=== PATIENT | female | born 1960 | race Caucasian/White ===

== ENCOUNTER 2018-05-23 09:59 | Emergency (ER) | payer BC ==
--- NOTE | 2018-05-23 10:16 | ED ---
HPI Chest Pain - HPI Summary HPI Summary: 57 y/o female BIBCm c/o tight CP after getting out of the shower 1.5 hours ago. Pain currently rated 3/10 in severity. Pt says she had a panic attack yesterday lasting 20 minutes, resolved with Xanax. Today prior to CP onset she had a similar episode with palpitations. Associated sx: lightheadedness, dizziness, numbness/tingling in fingers. PMHx HTN. Nono-smoker. No previous CA. No FHx CA. This is scribe Ed Umu documenting for attending Florencio Alejandro MD. I, Dr. Alejandro, personally performed the services described in this documentation as scribed in my presence and it is both accurate and complete. - History of Current Complaint Chief Complaint: EDChestPainROMI Hx Obtained From: Patient Onset/Duration: Started Hours Ago, Still Present Time of Onset: 09:00 Timing: Constant Pain Intensity: 3 Pain Scale Used: 0-10 Numeric Character: Tightness Aggravating Factor(s): Nothing Alleviating Factor(s): Nothing Associated Signs and Symptoms: Positive: Chest Pain, Numbness, Tingling, Dizziness, Lightheadedness, Palpitations - Allergy/Home Medications Allergies/Adverse Reactions: Allergies Allergy/AdvReac Type Severity Reaction Status Date / Time No Known Allergies Allergy Verified 05/23/18 10:15 PMH/Surg Hx/FS Hx/Imm Hx Previously Healthy: No Endocrine/Hematology History: Reports: Hx Anemia - HISTORY OF Sensory History: Denies: Hx Hearing Aid Psychiatric History: Reports: Hx Anxiety, Hx Panic Disorder - Surgical History Surgery Procedure, Year, and Place: UNDER GENERAL ANESTHESIA Hx Anesthesia Reactions: No Infectious Disease History: No Infectious Disease History: Reports: Hx Hepatitis - TYPE C - 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 TREATMENT - NO PROBLEMS Denies: Traveled Outside the [place] in Last 30 Days - Family History Known Family History: Negative: Cardiac Disease - Social History Alcohol Use: Daily Alcohol Amount: 1-2 glasses wine Hx Substance Use: No Substance Use Type: Reports: None Hx Tobacco Use: Yes Smoking Status (MU): Former Smoker Review of Systems Constitutional: Negative Eyes: Negative ENT: Negative Positive: Palpitations, Chest Pain Respiratory: Negative Gastrointestinal: Negative Genitourinary: Negative Musculoskeletal: Negative Skin: Negative Neurological: Other - dizziness, lightheadedness Positive: Numbness - and tingling Psychological: Normal All Other Systems Reviewed And Are Negative: Yes Physical Exam - Summary Physical Exam Summary: VITAL SIGNS: Reviewed. GENERAL: Patient is a well-developed and nourished female who is lying comfortable in the stretcher. Patient is not in any acute respiratory distress. HEAD AND FACE: No signs of trauma. No ecchymosis, hematomas or skull depressions. No sinus tenderness. EYES: PERRLA, EOMI x 2, No injected conjunctiva, no nystagmus. EARS: Hearing grossly intact. Ear canals and tympanic membranes are within normal limits. MOUTH: Oropharynx within normal limits. NECK: Supple, trachea is midline, no adenopathy, no JVD, no carotid bruit, no c- spine tenderness, neck with full ROM. CHEST: Symmetric, no tenderness at palpation LUNGS: Clear to auscultation bilaterally. No wheezing or crackles. CVS: Regular rate and rhythm, S1 and S2 present, no murmurs or gallops appreciated. ABDOMEN: Soft, non-tender. No signs of distention. No rebound no guarding, and no masses palpated. Bowel sounds are normal. EXTREMITIES: FROM in all major joints, no edema, no cyanosis or clubbing. NEURO: Alert and oriented x 3. No acute neurological deficits. Speech is normal and follows commands. SKIN: Dry and warm Psych: Some anxiety. Triage Information Reviewed: Yes Vital Signs On Initial Exam: Initial Vitals Temp Pulse Resp BP Pulse Ox 97.5 F 95 24 140/76 98 05/23/18 10:01 05/23/18 10:01 05/23/18 10:01 05/23/18 10:01 05/23/18 10:01 Vital Signs Reviewed: Yes Diagnostics - Vital Signs Vital Signs Temp Pulse Resp BP Pulse Ox 05/23/18 10:06 89 100 05/23/18 10:04 94 140/76 100 05/23/18 10:01 97.5 F 95 24 140/76 98 - Laboratory Result Diagrams: 05/23/18 10:30 05/23/18 10:30 Lab Statement: Any lab studies that have been ordered have been reviewed, and results considered in the medical decision making process. - Radiology CXR Xray Interpretation: No Acute Changes Radiology Interpretation Completed By: Radiologist - Additional Comments Diagnostic Additional Comments: EKG 1 - 10:18 - SR @ 81 BPM. Q waves in V1-V3. ST elevations in V5-V6 but this might be due to some J point. Similar to EKG done on 04/25/2013. Chest Pain Course/Dx - Course Course Of Treatment: At 10:50 Dr. Ching is at bedside performing an echocardiogram. Assessment/Plan: Blood work is without significant abnormalities except Potassium levels of 3, chloride 97, CO2 19, Anion 22, Creatinine 1.1, troponin 0.45. EKG shows ST elevations in V5-V6. CXR NAD. Second EKG similar to preivous one. Discussed with dr yanez who was in the trestle mainternance laborer at the time with another patient. Therefore, Dr. Ching came to see the pt. After Dr. Ching came to see the pt, he thinks pt should be transferred to another for an emergent catheterization. Meanwhile the pt is given ASA, metroprolol, NTG, heparin. He also requested to give the pt metropolol IV 2.5 mg. Pt right now is getting an echo and Dr. Ching believes the pt has akinesis in the ventricular patrick. Therefore these findings may be consistent with acute STEMI. The patient now is hemodynamically stable. Dr. Ching spoke with [facility] transfer center, and the pt will be transferred to [facility], accepted by Dr. Espinosa. Pt does not have contraindications - recent sx, GI bleeds, hemorrhagic cerebrovascular accidents. Dr. Ching recommedned 30 mg TNKs IV before transfer. Pt understands risks and benefits of getting a TPA and is willing to receive a TPA. - Chest Pain Differential Diagnosis/HQI/PQRI: Acute CA, ACS, Angina, CHF, Chest Wall, GI Disease, Lower Respiratory Infection - Diagnoses Provider Diagnoses: STEMI (ST elevation myocardial infarction) During the Visit The Following Alert/Code Occurred: STEMI - Provider Notifications Discussed Care Of Patient With: Sarwat Yanez Time Discussed With Above Provider: 10:30 Instructed by Provider To: Other - Dr. Yanez is not 100% sure if this is a STEMI, will send DR. Ching to the ED to assess pt. After Dr. Ching assessed pt, Humza spoke with Dr. Espinosa at [facility], who accepted the pt for transfer after getting TPA. - Critical Care Time Critical Care Time: 75-104 min Discharge - Sign-Out/Discharge Documenting (check all that apply): Patient Departure - Discharge Plan Condition: Stable Disposition: TRANS HIGHER LVL OF CARE FAC Referrals: Noah Patel MD [Primary Care Provider] - - Billing Disposition and Condition Condition: STABLE Disposition: Trans Higher Lvl of Care Fac
[2018-05-23] MEDS ORDERED: Nitroglycerin TAB 0.4 MG* 0.4 MG TAB SL PRN (10:27)
[2018-05-23] MEDS ORDERED: Metoprolol Tartrate TAB* 25 MG PO ONE (10:27)
[2018-05-23] MEDS ORDERED: Aspirin 81 mg CHEW TAB* 81 MG TAB.CHEW PO ONE (10:27)
[2018-05-23 10:40] LABS: ABS Basophils 0.1 10^3/ul (0-0.2); ABS Eosinophils 0.2 10^3/ul (0-0.6); ABS Lymphocytes 1.1 10^3/ul (1.0-4.8); ABS Monocytes 0.4 10^3/ul (0-0.8); ABS Neutrophils 2.5 10^3/ul (1.5-7.7); ABS Nucleated RBC 0 10^3/ul; Eosinophil % 5.5 % (0-6); Hematocrit 42 % (35-47); Hemoglobin 14.7 g/dl (12.0-16.0); Lymphocyte % 25.4 % (25-47); Mean Corpuscular HGB Conc 35 g/dl (31-36); Mean Corpuscular Hemoglobin 34 pg (27-31); Mean Corpuscular Volume 97 fL (80-97); Nucleated Red Blood Cells % 0.1; Platelet Count 203 10^3/ul (150-450); Red Blood Count 4.31 10^6/ul (4.00-5.40); Red Cell Distribution Width 13 % (10.5-15); White Blood Count 4.5 10^3/ul (3.5-10.8)
[2018-05-23] MEDS ORDERED: Heparin for STEMI(*) 5,000 UNITS/ML 1 ML VIAL IV ONE ×2 (10:58→11:01)
[2018-05-23] MEDS ORDERED: Metoprolol Tartrate IV* 1 MG/ML 5 ML VIAL IV ONE (11:08)
[2018-05-23] MEDS ORDERED: KCL 10 MEQ/50 ML IVPREMIX* 10 MEQ/50 ML BAG IV SCH (11:10)
--- NOTE | 2018-05-23 11:15 | RAD ---
HISTORY: CP, shortness of breath, chest pain COMPARISONS: None VIEWS: 1: frontal portable view of the chest at 10:50 AM FINDINGS: LINES AND TUBES: None. CARDIOMEDIASTINAL SILHOUETTE: The cardiomediastinal silhouette is normal for portable technique. PLEURA: The costophrenic angles are sharp. No pleural abnormalities are noted. LUNG PARENCHYMA: The lungs are clear. ABDOMEN: The upper abdomen is clear. There is no subphrenic gas. BONES AND SOFT TISSUES: No bone or soft tissue abnormalities are noted. IMPRESSION: NO ACTIVE CARDIOPULMONARY DISEASE.
[2018-05-23 11:53] VITALS: BP 140/92
[2018-05-23] MEDS ORDERED: TENECTEPLASE IV ONE (12:00)
--- NOTE | 2018-05-23 12:03 | PN ---
Progress Note - Progress Note Date of Service: 05/23/18 Note: Spoke with Dr. Camilo Yuan, ER attending Jenae Boykin, at 12:00. Informed Dr. Yuan of incoming pt.
--- NOTE | 2018-05-23 12:47 | TRS ---
CARDIOLOGY CONSULTATION AND TRANSFER SUMMARY: DATE OF ADMISSION: 05/23/2018. DATE OF DISCHARGE: 05/23/2018. INDICATION FOR TRANSFER: Chest pain, abnormal EKG, possible STEMI. HISTORY OF PRESENT ILLNESS: The patient is a 57-year-old female with a history of hypertension. The patient came to the emergency room because of onset of chest discomfort about 2 hours ago. The patient has been under tremendous amount of stress recently, she lost her granddaughter to sudden syndrome about 6 weeks ago and has been significantly depressed since then. The patient states she was in the shower today. The patient experiencing 2 hours of chest pain at home came to the emergency room. Her initial EKG showed normal sinus rhythm with ST segment elevation in V5 and V6. The patient had an immediate echocardiogram. The echocardiogram showed akinesis of the distal anterior wall and apex. Her initial troponin level was 0.45. The decision was that the patient needed urgent cardiac catheterization; however, because of ongoing emergency in our manager laboratory, the patient will be transferred to an outside facility. PAST MEDICAL HISTORY: Hypertension, history of hysterectomy. OUTPATIENT MEDICATIONS: 1. Amlodipine 5 mg a day. 2. Iron tablets. 3. Xanax. 4. Valium. ALLERGIES: No known drug allergies. SOCIAL HISTORY: She is . 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 She denies tobacco or alcohol use. PHYSICAL EXAMINATION: Vital Signs: Height is 5 feet 2 inches, weight is 110 pounds. Temperature 97.5, heart rate is 95, blood pressure 140/76, respiratory rate is 18. HEENT: Sclerae anicteric. Oropharynx is pink without erythema. Neck: Carotids are 2+ without bruits. JVD is normal. Thyroid is normal. Cardiac: S1 and S2 without any murmurs, rubs, or gallops. Lungs: Clear to auscultation bilaterally. There is no dullness to percussion. Abdomen: Soft, nontender, and nondistended with normoactive bowel sounds. Extremities: Show no edema. She has 2+ pulses throughout. Neurologic: The patient is awake, alert, and oriented. She moves all 4 extremities equally. LABORATORY DATA: CBC within normal limits. Chemistries: Sodium is 138, potassium is 3, BUN 19, creatinine 1.1. AST and ALT are normal. TSH is pending. Initial troponin level is 0.45. PTT 29.1. IMPRESSION: The patient is a 57-year-old female admitted to the hospital with chest pain, abnormal EKG consistent with possible with ST-elevation myocardial infarction. Her echocardiogram shows anterior and apical severe hypokinesis potentially consistent with an LAD stenosis. The patient has had significant emotional trauma in the last 6 weeks. This very well could be Takotsubo or broken-heart syndrome. In general, the patient should go to the cardiac catheterization lab for determination. However, our cardiac catheterization is currently involved in an emergency. The patient will be transferred to [facility] for further evaluation. The patient will be given thrombolytics here in [facility] and transferred quickly. Total time in ED with patient 1.5 hours Of which 1/2 hour was critical care time [id number]/[facility] #: [id number] CHRIS
== END 2018-05-23 12:01 | disposition short-term general hospital (02) ==
LOC: ED 09:59
DX: I21.3 ST elevation (STEMI) myocardial infarction of unspecified site (principal); I10 Essential (primary) hypertension; Z87.891 Personal history of nicotine dependence
CPT/HCPCS: 36415; 71045; 80053; 82550; 82553; 83605; 83735; 84443; 84484; 85025; 85730; 93005; 93306; 96374; 96375; 99285; A9270-GY; J1644; J3101; J3480; J3490